=== PATIENT | female | born 1975 | race Caucasian/White ===

== ENCOUNTER 2020-04-01 16:06 | Outpatient (CLI) | payer OTHER, SELFPAY ==
--- NOTE | ~2020-04-01 | MM_ITS ---
EXAMINATION: MM screening shelli BI w dnea HISTORY: Screening mammogram TECHNIQUE: Craniocaudal and mediolateral oblique 3-D tomosynthesis images were obtained and synthetic 2-D images were generated. CAD analysis was submitted and interpreted. COMPARISON: 01/14/2019 limited left breast ultrasound examination 01/10/2019 bilateral diagnostic digital mammogram 12/05/2018 bilateral digital screening mammogram BREAST PARENCHYMAL COMPOSITION: There are scattered areas of fibroglandular density. FINDINGS: There is minimal benign calcification of the breast. There is no evidence of suspicious mas s, calcification, or architectural distortion to suggest malignancy in either breast. There has been no suspicious interval change. IMPRESSION: 1. No mammographic evidence of malignancy. 2. Recommend routine screening mammography in one year. BI-RADS Category 2: Benign finding(s). Reviewed, dictated and finalized at location A. [employer]
== END 2020-04-01 16:07 | disposition home or self-care (01) ==
LOC: ANHIMG 16:08
PROVIDERS: PCP Family Medicine; Visit Provider Obstetrics & Gynecology
DX: Z12.31 Encounter for screening mammogram for malignant neoplasm of breast (principal)
CPT/HCPCS: 77063; 77067

== ENCOUNTER 2023-01-27 05:52 | Day surgery (SDC) | payer OTHER, SELFPAY ==
[2023-01-24 12:35] VITALS: BMI 23.7
[2023-01-27] VITALS (9 sets, daily range): BP systolic 107–117; BP diastolic 58–79; PULSE 55–82; RESP 12–18; TEMP 36.1–36.4; O2SAT 97–100
--- NOTE | ~2023-01-27 | XR_ITS ---
EXAMINATION: XR surgery orthopedic DATE: 01/27/2023 09:19 INDICATION: Right foot calcaneal osteotomy TECHNIQUE: 3 fluoroscopic images of the right hindfoot were obtained during procedure performed by Dr Brian Birch. Radiologist was not present for the imaging or procedure. The amount of fluoroscopy time u sed during this procedure was 0.3 minutes. COMPARISON: None. FINDINGS: Metallic implant has been placed along an anterior calcaneal osteotomy. Alignment remains near-anatom ic. No fracture. 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 Remaining profiled joint spa juan appear relatively preserved. IMPRESSION: 1. Fluoroscopy utilized during an anterior right calcaneal realignment osteotomy with implant placeme nt with expected appearance. Reviewed, dictated and finalized at location A. [employer] SUPERVISOR IMPRESSION: 1. Fluoroscopy utilized during an anterior right calcaneal realignment osteotom y with implant placement with expected appearance.
[2023-01-27] MEDS: LACTATED RINGERS 1,000 ML 30 ML IV CONT (06:30)
--- NOTE | 2023-01-27 07:06 | WPDHPUPDATE1 ---
History and Physical Update Update Date/Time: 01/27/23 07:06 History and Physical has been reviewed, including an updated exam of the patient. There are NO changes in the patient's condition. Risks, benefits, and alternatives have been discussed and questions answered. Patient agrees to proceed with procedure.
--- NOTE | 2023-01-27 07:08 | WPDANESEPPF ---
Anes - Initial Pre Proc Eval Procedure: Operation Date: 01/27/23 07:30 Proposed Procedures p [place] Procedure Right Foot - Santos Echevarria JR, MD s Correa Calcaneal Osteotomy Right Foot - Santos Echevarria JR, MD Date/Time: 01/27/23 07:08 Surgeon: Santos Echevarria JR, MD Pre Op Diagnosis: Talotarsal Instability RT FT Patient Data Age: 47 Gender: F Height: 1.78 m Weight: 77.2 kg Last Vital Signs Temp 36.4 C 01/27/23 06:36 Pulse 55 L 01/27/23 06:36 Resp 16 01/27/23 06:36 BP 107/71 01/27/23 06:36 Pulse Ox 100 01/27/23 06:36 O2 Del Method Room Air 01/27/23 06:36 Allergies Allergy/AdvReac Type Severity Reaction Status Date / Time codeine AdvReac Itching Verified 01/27/23 06:29 erythromycin base AdvReac Itching Verified 01/27/23 06:28 Penicillins AdvReac Itching Verified 01/27/23 06:27 Home Medications Medication Instructions Recorded Confirmed Type trazodone 50 mg tablet 50 mg PO HS PRN Sleep 02/20/19 01/27/23 History Patient hx anesthesia problems: none Family hx anesthesia problems: none Results Review: All pre-operative results and documents have been reviewed as part of the pre-operative evaluation. [facility] Past Medical History Medical History Asthma history bronchospasms Generalized anxiety disorder Hidradenitis suppurativa Hyperlipidemia, unspecified Hypertension Perforated gastric ulcer POTS (postural orthostatic tachycardia syndrome) Stress incontinence Surgical History Surgical History History of abdominoplasty (03/19/16) revision of GJ and gastric pouch History of 11/07/05 primary c/s--arrest of dilation 12/09/06 rpt c/s 02/10/09 rpt c/s History of cholecystectomy (~1994) History of gastric bypass 2010 initial gastric bypass 10/14/15 gastric bypass revision History of laparoscopy repair perforated gastric ulcer 02/2019 History of ovarian cystectomy 12/01/09 rt ovarian cystectomy History of right salpingo-oophorectomy (07/22/19) History of tonsillectomy (~1989) Family History Family History Mother Family history of liver disease Father Hypertension Other Acquired hypothyroidism Social History Social History Smoking status: Never smoker Second hand tobacco smoke exposure: No Alcohol intake: current Alcohol use details: 6 per month Substance use: never Substance use type: does not use Lack of Transportation: No Lack of Food: Never True Current Housing: I Have Housing Concerned About Future Housing: No Difficulty Paying Gas/Electric Bills: No Difficulty Paying for Meds: No Currently Unemployed: No Education: Bachelor's Degree Difficulty w/ Childcare or Family Care: No Living arrangements: with family Additional living arrangements comments: Occupation/Education: occupation 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 Gender identity (if verbalized by the patient): Female Sexual Orientation (if Verbalized by the Patient): Straight or Heterosexual Spiritual care concerns: No Anes - Eval Final PreProcedure Day of Procedure 01/27/23 07:08 Patient weight: normal Heart: regular rate and rhythm Lungs: clear to auscultation Airway: Mallampati scale class II Neurological: alert and oriented Last oral intake: >/= 8 hours ASA classification: III Emergent: no Anesthetic plan: proceed Anesthesia type and monitoring: general LMA and standard monitoring Results Review: All pre-operative results and documents have been reviewed as part of the pre-operative evaluation. Informed Consent: The patient's anesthetic plan and its attendant risks and benefits were discussed with the patient/family/POA. Questions were solicited and answers provided
[2023-01-27] MEDS: ceFAZolin SODIUM 2 GM/20 ML SW SYRINGE IV PUSH (07:32)
[2023-01-27] MEDS: fentaNYL CITRATE INJ (*CRX) 100 MCG/2 ML VIAL 25 MCG IV PUSH ×4 (09:30→09:58)
--- NOTE | 2023-01-27 09:30 | WPDANESPNB ---
Anes - Peripheral Nerve Block Date/Time: 01/27/23 09:30 I have discussed with the patient/family/POA the placement of a peripheral nerve block for post-operative pain management, including associated risks, benefits, complications, and side effects. Alternative methods of post-operative analgesia were detailed. Questions were solicited and answers provided to the satisfaction of the patient/family/POA. Time-Out: A pre-procedural Time-Out was completed immediately before starting the procedure and confirmed: Patient Identification, Site, Procedure, Patient Position and the Availability of Requisite Equipment. Clinical Indications: Acute post-operative pain management requested by the operative surgeon. Nerve Block Insertion Note Anes-nerve block: posterior fossa sciatic and other (Saphenous) Patient position: supine Skin prep: chlorhexidine Needle: 22 gauge, stimulating, insulated echogenic needle. Needle length: 80 mm Technique: nerve stimulation lost at (mA) (0.3) Technique comment: mid2mg [id number] Injectate: bupivacaine 0.5% with epi 5 mcg/ml (20/10ml no epi) and dexamethasone (mg) (4) Observations: tolerated well Complications: none Procedure start time:: 721 Procedure end time:: 728
--- NOTE | 2023-01-27 09:32 | SUR.PHASEI ---
0930 right foot w/splint intact/able to move toes on command/denies sensation/rating pain 09/19
--- NOTE | 2023-01-27 09:36 | W.PM.PROC2 ---
Procedure Note - Detailed Date of Procedure 01/27/23 Pre-op Diagnosis 1. Hypertrophic navicular right foot 2. Talar tarsal instability right foot Post-op Diagnosis Same Procedure Performed 1. Kidner procedure right foot 2. Correa calcaneal osteotomy right foot Surgeon Santos Echevarria JR, DPM Anesthesia General and Regional Indications Painful medial hindfoot right with a prominent hypertrophic navicular Findings Severely hypertrophic navicular adequately resected. Description of Procedure PROCEDURE IN DETAIL: Under mild sedation, the patient was brought into the operating room, placed on the operating table in supine position. A pneumatic thigh tourniquet was placed about the patient's ipsilateral limb. Following general anesthesia and a popliteal fossa block, the foot was then scrubbed, prepped, and draped in the usual aseptic manner. An Esmarch bandage was then used to exsanguinate the patient's foot and the pneumatic thigh tourniquet was then inflated at 300mmHg. Attention was directed to the lateral aspect of the hindfoot.? An incision was made starting just distal to the lateral malleolus and extending towards the base of the calcaneal cuboid joint.? The extensor digitorum brevis muscle was detached partially from its origin to expose the calcaneal cuboid joint and distal lateral aspect of the anterior calcaneus. The peroneal tendons were carefully retracted inferiorly. The periosteal tissue was dissected approximately 1.5cm proximal to the calcaneal cuboid joint. At this point a sagittal saw blade was used to make an osteotomy parallel with the calcaneal joint however 1.5cm proximal to the joint, the medial cortical hinge was preserved. Two Gwen pins were placed proximal and distal to the osteotomy site and the osteotomy was opened until the talar head was fully covered by the navicular this also helped slightly plantarflex the first ray. An 10 mm Arthrex Correa Biosync wedge was tamped into the osteotomy and fixated with a 22 Locking screw through the actual provided screw hole with standard technique. Excellent position of the wedge was visualized with fluoroscopy. The deep capsular structures and reflected extensor digitorum brevis muscle were reapproximated with 3.0 Vicryl. Next, the subcutaneous tissue was reapproximated with 4-0 Vicryl and the skin with 4-0 Prolene. Next, attention was directed to the medial aspect of the medial hindfoot 3cm proximal and distal to the prominent accessory about about the navicular tuberosity. The incision was dissection was continued down to the level of the periosteum and capsular structures overlying the hypertrophic navicular. Futhermore, the hypertrophic navicular was resected with the sagittal bone saw and made smooth with a gill rasp. Fluoroscopy was used to make sure enough bone was resected. Next, an Arthrex Suture Dashawn bone anchor which was a 3mm by 14.5mm . The periosteum and capsular structures were anastomosed to the distal posterior tendon to give more stability to the repair. Next, the subcutaneous structures were reapproximated with 4-0 Vicryl. Next, the skin was reapproximated and coapted utilizing 4-0 Monocryl in running subcuticular suture fashion technique. Upon completion of the procedure, the incision was dressed with Steri-Strips, Adaptic, 4x4s, Kerlix, and Coban. The pneumatic ankle tourniquet was then deflated and a prompt hyperemic response was noted to all digits of the foot. A posterior splint was then applied to the affected lower extremity. It is important to note that Dr. Echevarria was present throughout the procedure. The patient did very well with the procedure and the anesthesia. She was transferred to the recovery room with vital signs stable and vascular status intact to all toes of the ipsilateral foot. Following a period of postoperative monitoring, the patient will be discharged home on the following written and oral postoperative instructions: 1. Keep t
[2023-01-27] MEDS: diphenhydrAMINE HCl INJ 50 MG/ML VIAL 12.5 MG IV PUSH ×2 (09:52→10:22)
[2023-01-27] MEDS: oxyCODONE HCL (*CRX) 5 MG TAB IR PO (10:49)
--- NOTE | 2023-01-27 11:39 | WPDANESPN ---
Anes - Prog Note Post-Op Date/Time: 01/27/23 11:39 Cardiovascular status: normal Respiratory status: normal Airway patency: baseline Mental status: baseline Post-Op hydration status: normal Vital Signs: Last Vital Signs Temp 36.1 C L 01/27/23 09:23 Pulse 73 01/27/23 10:50 Resp 18 01/27/23 10:50 BP 108/62 01/27/23 10:50 Pulse Ox 99 01/27/23 10:50 O2 Del Method Room Air 01/27/23 10:50 O2 Flow Rate 5 01/27/23 09:23 Pain Score (VAS): 2 Patient Feedback: Patient satisfied with anesthetic care.
== END 2023-01-27 11:20 | disposition home or self-care (01) ==
PROVIDERS: PCP Family Medicine; Visit Provider Podiatrist Foot & Ankle Surgery
PROC: (CPT 28238; principal; 2023-01-27 07:30)
PROC: (CPT 28035; 2023-01-27 07:30)
DX: M89.371 Hypertrophy of bone, right ankle and foot (principal); M25.374 Other instability, right foot
CPT/HCPCS: 28238; 28300; 99199; L8699